=== PATIENT | female | born 1960 | race Caucasian/White ===

== ENCOUNTER 2017-05-17 08:08 | Emergency (ER) | payer OTHER ==
[2017-05-17 08:08] VITALS: BMI 20.2
[2017-05-17 08:13] VITALS: O2SAT 100
[2017-05-17] MEDS ORDERED: Iohexol 240 (50 ml) PO STA (08:45)
--- NOTE | 2017-05-17 08:47 | C.PDOC ---
History Of Present Illness Patient is a 56 y/o F with hx of colostomy 8 years ago due to colon cancer, presenting with "lump" at 3 oclock at edge of colostomy. She denies fever, chest pain, shortness of breath, abdominal pain, nausea/vomiting, diarrhea/ constipation, dysuria. Reports normal colostomy output. Time Seen by Provider: 05/17/17 08:31 Chief Complaint (Nursing): Abdominal Pain Past Medical History Vital Signs: Last Vital Signs Temp 97.4 F L 05/17/17 11:27 Pulse 78 05/17/17 11:27 Resp 20 05/17/17 11:27 BP 168/75 H 05/17/17 11:27 Pulse Ox 100 05/17/17 13:37 - Medical History PMH: Malignancy (colon ca) - [facility] Procedures APPLICATION OF SPLINT (05/07/14) Family History: States: Unknown Family Hx - Social History Hx Tobacco Use: Yes (light smoker) Hx Alcohol Use: Yes Hx Substance Use: No - Immunization History Hx Tetanus Toxoid Vaccination: No Hx Influenza Vaccination: No Hx Pneumococcal Vaccination: No Review Of Systems Except As Marked, All Systems Reviewed And Found Negative. Constitutional: Negative for: Fever, Chills Cardiovascular: Negative for: Chest Pain, Palpitations, Paroxysmal Noc. Dyspnea , Edema Respiratory: Negative for: Cough, Shortness of Breath, SOB with Excertion, Wheezing Gastrointestinal: Positive for: Other (lump near colostomy site). Negative for : Nausea, Vomiting, Abdominal Pain, Diarrhea, Constipation Genitourinary: Negative for: Dysuria Neurological: Negative for: Weakness, Numbness Physical Exam - Physical Exam Appears: Well, Non-toxic, No Acute Distress Skin: Normal Color, Warm, Dry Head: Atraumatic, Normacephalic Eye(s): bilateral: Normal Inspection, PERRL, EOMI Neck: Supple Chest: Symmetrical Cardiovascular: Rhythm Regular Respiratory: Normal Breath Sounds Gastrointestinal/Abdominal: Soft, No Tenderness, Other (colostomy to L abdomen, pea sized small non-tender non-mobile lump at 3 oclock, pink stoma) Back: Normal Inspection, No CVA Tenderness Extremity: Normal ROM Neurological/Psych: Oriented x3 Gait: Steady ED Course And Treatment - Laboratory Results Result Diagrams: 05/17/17 08:54 05/17/17 08:54 O2 Sat by Pulse Oximetry: 100 Medical Decision Making Medical Decision Making: Will get CT abd/pelvis with po and IV contrast to evaluate further. CT FINDINGS: LOWER THORAX: Unremarkable. LIVER: Unremarkable. No gross lesion or ductal dilatation. GALLBLADDER AND BILE DUCTS: Unremarkable. PANCREAS: Unremarkable. No gross lesion or ductal dilatation. SPLEEN: Unremarkable. ADRENALS: Unremarkable. No mass. KIDNEYS AND URETERS: Right hydronephrosis and proximal hydroureter. Point of transition in the right ureter is noted in the mid pelvis without evidence of ureteral calculus or adjacent neoplastic or inflammatory process. Significance uncertain. No left hydronephrosis. No renal mass or calculus. VASCULATURE: Unremarkable. No aortic aneurysm. BOWEL: Status post abdominoperineal resection. Left parasagittal anterior colostomy. Small parastomal hernia of small bowel unchanged in appearance from prior examination. Small infra umbilical hernia containing nonobstructed small bowel for more inferiorly, in the midline. No bowel obstruction. APPENDIX: Normal appendix. PERITONEUM: Presacral soft tissue thickening unchanged from previous common nonspecific. No ascites or pneumoperitoneum. LYMPH NODES: Unremarkable. No enlarged lymph nodes. BLADDER: Unremarkable. REPRODUCTIVE: Unremarkable uterus BONES: No acute fracture. OTHER FINDINGS: None. IMPRESSION: Small parastomal hernia containing small bowel unchanged from previous. No evidence of abscess or other inflammatory process at the site of the colostomy. Inferior midline ventral hernia containing nonobstructed small bowel. Right hydroureteronephrosis with transition in the ureteral caliber at the level of the mid pelvis. Uncertain etiology. Recommend further evaluation by Urology. Status post abdominoperineal resection. Labs are grossly normal. Patient made aware of CT results. She has no urinary complaints, no fever, and normal creatinine and wbc. She reports that she will follow-up with urologist for further evaluation. She will follow-up with her surgeon and oncologist for further evaluation. no urinary cmplaints Disposition - Disposition Referrals: Byron Graves Jr., MD [Staff Provider] - Disposition: HOME/ ROUTINE Disposition Time: 13:35 Condition: GOOD Additional Instructions: Follow-up with urology for hydroureteronephrosis. Return to ED if condition worsens. Follow-up with your surgeon and cancer doctor for swelling near colostomy site. Forms: [employer] (Greek) - Clinical Impression Clinical Impression: Hernia
[2017-05-17] MEDS ORDERED: Iohexol 240 (50 ml) ONE (08:53)
[2017-05-17 09:00] LABS: BASO # 0.1 K/uL (0.0-0.2); BASO % 1.2 % (0.0-2.0); EOS # 0.2 K/uL (0.0-0.7); HEMATOCRIT 40.2 % (34.0-47.0); LYMPH # 1.7 K/uL (1.0-4.3); MEAN CELL VOLUME 93.4 fL (81.0-99.0); MEAN CORPUSCULAR HEMOGLOBIN 31.9 pg (27.0-31.0); MEAN CORPUSCULAR HGB CONC 34.2 g/dL (33.0-37.0); MEAN PLATELET VOLUME 7.4 fL (7.2-11.7); MONO # 0.4 K/uL (0.0-0.8); MONO % 7.3 % (0.0-10.0); RED CELL DISTRIBUTION WIDTH 13.1 % (11.5-14.5); WHITE BLOOD COUNT 5.4 K/uL (4.8-10.8)
[2017-05-17 10:43] LABS: ALB/GLOB RATIO 1.3 (1.0-2.1); ALKALINE PHOSPHATASE 93 U/L (38-126); ALT/SGPT 33 U/L (9-52); AST/SGOT 25 U/L (14-36); BILIRUBIN,TOTAL 0.9 mg/dL (0.2-1.3); BLOOD UREA NITROGEN 16 mg/dL (7-17); CALCIUM 8.8 mg/dl (8.6-10.4); CARBON DIOXIDE 21 mmol/L (22-30); CHLORIDE 105 mmol/L (98-107); GFR AFRICAN-AMERICAN > 60; GLUCOSE,RANDOM 102 mg/dL (65-105); POTASSIUM 3.6 mmol/L (3.6-5.2); SODIUM 137 mmol/L (132-148); TOTAL PROTEIN 7.6 g/dL (6.3-8.3)
[2017-05-17] MEDS ORDERED: Iodixanol 320 MG/ML 100 ML BOTTLE IV ONE (10:57)
[2017-05-17] MEDS ORDERED: Morphine 4 MG/ML VIAL ONE (11:27)
[2017-05-17 11:28] VITALS: BP 168/75; PULSE 78; RESP 20; TEMP 97.4
--- NOTE | 2017-05-17 12:44 | CT ---
PROCEDURE: CT Abdomen and Pelvis with contrast HISTORY: swelling near colostomy site COMPARISON: None. TECHNIQUE: Contrast dose: 100 mL Visipaque 320 Radiation dose: Total exam DLP = 264.88 mGy-cm. This CT exam was performed using one or more of the following dose reduction techniques: Automated exposure control, adjustment of the mA and/or kV according to patient size, and/or use of iterative reconstruction technique. FINDINGS: LOWER THORAX: Unremarkable. LIVER: Unremarkable. No gross lesion or ductal dilatation. GALLBLADDER AND BILE DUCTS: Unremarkable. PANCREAS: Unremarkable. No gross lesion or ductal dilatation. SPLEEN: Unremarkable. ADRENALS: Unremarkable. No mass. KIDNEYS AND URETERS: Right hydronephrosis and proximal hydroureter. Point of transition in the right ureter is noted in the mid pelvis without evidence of ureteral calculus or adjacent neoplastic or inflammatory process. Significance uncertain. No left hydronephrosis. No renal mass or calculus. VASCULATURE: Unremarkable. No aortic aneurysm. BOWEL: Status post abdominoperineal resection. Left parasagittal anterior colostomy. Small parastomal hernia of small bowel unchanged in appearance from prior examination. Small infra umbilical hernia containing nonobstructed small bowel for more inferiorly, in the midline. No bowel obstruction. . . APPENDIX: Normal appendix. PERITONEUM: Presacral soft tissue thickening unchanged from previous common nonspecific. No ascites or pneumoperitoneum. LYMPH NODES: Unremarkable. No enlarged lymph nodes. BLADDER: Unremarkable. REPRODUCTIVE: Unremarkable uterus BONES: No acute fracture. OTHER FINDINGS: None. IMPRESSION: Small parastomal hernia containing small bowel unchanged from previous. No evidence of abscess or other inflammatory process at the site of the colostomy. Inferior midline ventral hernia containing nonobstructed small bowel. Right hydroureteronephrosis with transition in the ureteral caliber at the level of the mid pelvis. Uncertain etiology. Recommend further evaluation by Urology. Status post abdominoperineal resection.
== END 2017-05-17 14:10 | disposition home or self-care (01) ==
LOC: C.ER 08:08
DX: K46.9 Unspecified abdominal hernia without obstruction or gangrene (principal)
CPT/HCPCS: 74177; 80053; 85025; 96374; 96375; 99285; J1885; J2270; Q9966; Q9967

== ENCOUNTER 2017-09-07 22:03 | Inpatient (IN) | payer OTHER ==
[2017-09-07 22:04] VITALS: BMI 20.2
--- NOTE | 2017-09-07 22:14 | C.PDOC ---
History Of Present Illness 56 year old female presents to the ED c/o hematuria and clots. Patient is also requesting to have a catheter placed. Patient denies fever, chills, nausea. vomit, abdominal pain, back pain, vaginal discharge. Time Seen by Provider: 09/07/17 22:13 Chief Complaint (Nursing): Female Genitourinary History Per: Patient History/Exam Limitations: no limitations Onset/Duration Of Symptoms: Days Current Symptoms Are (Timing): Still Present Severity: Severe Pain Scale Rating Of: 7 Quality Of Discomfort: Sharp, Burning, Pressure Associated Symptoms: Urinary Symptoms. denies: Fever, Chills, Nausea Alleviating Factors: None Recent travel outside of the [place]: No Additional History Per: Patient Abnormal Vaginal Bleeding: No Past Medical History Reviewed: Historical Data, Nursing Documentation, Vital Signs Vital Signs: Last Vital Signs Temp 97.7 F 09/07/17 23:45 Pulse 76 09/07/17 23:45 Resp 20 09/07/17 23:45 BP 138/70 09/07/17 23:45 Pulse Ox 97 09/08/17 00:24 - Medical History PMH: Malignancy (colon ca) Surgical History: No Surg Hx - [facility] Procedures APPLICATION OF SPLINT (05/07/14) Family History: States: Unknown Family Hx - Social History Hx Tobacco Use: Yes (light smoker) Hx Alcohol Use: Yes Hx Substance Use: Yes (for CA pain) - Immunization History Hx Tetanus Toxoid Vaccination: No Hx Influenza Vaccination: No Hx Pneumococcal Vaccination: No Review Of Systems Constitutional: Negative for: Fever, Chills Cardiovascular: Negative for: Chest Pain Gastrointestinal: Negative for: Nausea, Vomiting, Abdominal Pain Genitourinary: Positive for: Hematuria. Negative for: Dysuria Musculoskeletal: Negative for: Back Pain Skin: Negative for: Rash Neurological: Negative for: Weakness, Numbness Psych: Positive for: Anxiety Physical Exam - Physical Exam Appears: Non-toxic, No Acute Distress Skin: Warm, Dry Head: Normacephalic Eye(s): bilateral: Normal Inspection Nose: No Discharge, No Deformity Oral Mucosa: Moist Neck: Supple Chest: Symmetrical Cardiovascular: Rhythm Regular, No Murmur Respiratory: No Rales, No Rhonchi, No Wheezing Gastrointestinal/Abdominal: Soft, No Tenderness, No Guarding, No Rebound, Other (colostomy on the left) Extremity: Normal ROM, No Tenderness, No Swelling Extremity: Bilateral: Atraumatic Pulses: Left Dorsalis Pedis: Normal, Right Dorsalis Pedis: Normal Neurological/Psych: Oriented x3 Gait: Steady ED Course And Treatment - Laboratory Results Result Diagrams: 09/07/17 22:38 09/07/17 22:38 O2 Sat by Pulse Oximetry: 97 (On RA) Pulse Ox Interpretation: Normal - CT Scan/US CT abd/pelvis Other Rad Studies (CT/US): Read By Radiologist, Radiology Report Reviewed CT/US Interpretation: IMPRESSION: Decompressed thickwalled bladder with adjacent inflammatory changes and small amount of. hemorrhage. Findings could be related to hemorrhagic cystitis. Clinical correlation recommended. Bilateral hydroureteronephrosis. No definite distal ureteral stone.Indeterminate appendix. Mildly thickened proximal appendix measures 9 mm. No adjacent. inflammatory stranding to suggest acute appendicitis. Clinical correlation recommended. Short. interval followup to be obtained if clinically warranted. Small nonobstructing ventral hernias. Progress Note: Plan: - CT abd/pelvis. - Labs. - Pepcid 20 mg IVP. - IV fluids. - Zofran 4 mg IVP. - UA. Placed a uzbek landrum with no difficulty approximate 8 ccs of bloody urine were collected in small pots. Nurse Dirk present during the procedure as witness. Patient tolerated the procedure well. Disposition Discussed With : Tung Lloyd Comment: accepted the pt on his service and took over the care at 12:29AM Doctor Will See Patient In The: Hospital Counseled Patient/Family Regarding: Studies Performed, Diagnosis - Disposition Disposition: HOSPITALIZED Disposition Time: 22:14 Condition: FAIR Forms: [employer] (Chinese) - POA Present On Arrival: None - Clinical Impression Clinical Impression: Abdominal pain, Hematuria, Hydroureteronephrosis - Scribe Statement The provider has reviewed the documentation as recorded by the Scribe Rei [place] All medical record entries made by the Scribe were at my direction and personally dictated by me. I have reviewed the chart and agree that the record accurately reflects my personal performance of the history, physical exam, medical decision making, and the department course for this patient. I have also personally directed, reviewed, and agree with the discharge instructions and disposition. Decision To Admit - Pt Status Changed To: Hospital Disposition Of: Inpatient - Admit Certification Admit to Inpatient:: After my assessment, the patient will require hospitalization for at least two midnights. This is because of the severity of symptoms shown, intensity of services needed, and/or the medical risk in this patient being treated as an outpatient. - InPatient: Physician Admission Certification: I certify that this patient requires 2 or more midnights of care for the following reason:: After my assessment, the patient will require hospitalization for at least two midnights. This is because of the severity of symptoms shown, intensity of services needed, and/or the medical risk in this patient being treated as an outpatient. - . Bed Request Type: Regular Admitting Physician: Tung Lloyd Patient Diagnosis: Abdominal pain, Hematuria, Hydroureteronephrosis
[2017-09-07] MEDS ORDERED: Sodium Chloride 0.9% 1,000 ML IV ONE (22:27)
[2017-09-07 22:41] LABS: BASO # 0.1 K/uL (0.0-0.2); BASO % 1.3 % (0.0-2.0); EOS # 0.2 K/uL (0.0-0.7); EOS % 3.9 % (0.0-4.0); HEMOGLOBIN 12.6 g/dL (11.0-16.0); LYMPH # 2.7 K/uL (1.0-4.3); LYMPH % 43.8 % (20.0-40.0); MEAN CELL VOLUME 93.2 fL (81.0-99.0); MEAN CORPUSCULAR HEMOGLOBIN 32.6 pg (27.0-31.0); MEAN PLATELET VOLUME 7.2 fL (7.2-11.7); MONO # 0.4 K/uL (0.0-0.8); MONO % 7.2 % (0.0-10.0); NEUT # 2.7 K/uL (1.8-7.0); NEUT % 43.8 % (50.0-75.0); RBC 3.87 Mil/uL (3.80-5.20); RED CELL DISTRIBUTION WIDTH 13.7 % (11.5-14.5); WHITE BLOOD COUNT 6.2 K/uL (4.8-10.8)
[2017-09-07] MEDS ORDERED: Morphine 4 MG/ML VIAL ONE (22:41)
[2017-09-07] MEDS ORDERED: Sodium Chloride 0.9% 1,000 ML ONE (22:41)
[2017-09-07 22:47] LABS: URINE BACTERIA FEW (<OCC); URINE BILIRUBIN NEGATIVE (NEGATIVE); URINE BLOOD 3+ (NEGATIVE); URINE CLARITY Turbid (Clear); URINE COLOR Red (YELLOW); URINE GLUCOSE (UA) 1+ mg/dL (Normal); URINE LEUKOCYTE ESTERASE NEG Leu/uL (Negative); URINE PROTEIN 2+ mg/dL (NEGATIVE); URINE UROBILINOGEN NORMAL mg/dL (0.2-1.0)
[2017-09-07 22:50] LABS: PROTHROMBIN TIME 10.6 SECONDS (9.7-12.2)
[2017-09-07 22:53] LABS: ALB/GLOB RATIO 1.1 (1.0-2.1); ALBUMIN 4.1 g/dL (3.5-5.0); ALT/SGPT 18 U/L (9-52); AST/SGOT 21 U/L (14-36); BLOOD UREA NITROGEN 26 mg/dL (7-17); CALCIUM 9.1 mg/dl (8.6-10.4); GFR AFRICAN-AMERICAN > 60; GFR NON-AFRICAN AMERICAN > 60
[2017-09-07] MEDS ORDERED: Iohexol 350mg/ml 100 ML ONE (22:59)
[2017-09-07] MEDS ORDERED: HYDROmorphone 1 mg/ml ISec IVP STA (23:57)
[2017-09-08] MEDS ORDERED: HYDROmorphone 1 mg/ml ISec ONE (00:03)
--- NOTE | 2017-09-08 00:15 | CT ---
EXAM: CT Abdomen and Pelvis With Intravenous Contrast CLINICAL HISTORY: 56 years old, female; Pain and signs and symptoms; Other: Hematuria; Abdominal pain; Generalized; Additional info: Abd pain , hematuria TECHNIQUE: Axial computed tomography images of the abdomen and pelvis with intravenous contrast. All CT scans at this facility use one or more dose reduction techniques, viz.: automated exposure control; ma/kV adjustment per patient size (including targeted exams where dose is matched to indication; i.e. head); or iterative reconstruction technique. Coronal and sagittal reformatted images were created and reviewed. CONTRAST: 100 mL of [id number] administered intravenously. COMPARISON: No relevant prior studies available. FINDINGS: Lower thorax: There is minimal bibasilar atelectasis. ABDOMEN: Liver: Unremarkable. No mass. Gallbladder and bile ducts: Unremarkable. No calcified stones. No ductal dilation. Pancreas: Unremarkable. No mass. No ductal dilation. Spleen: Unremarkable. No splenomegaly. Adrenals: Unremarkable. No mass. Kidneys and ureters: Mild bilateral hydronephrosis and hydroureter. No distal ureteral stone. No mass. Stomach and bowel: Lower quadrant colostomy and partial colectomy. There are multiple small ventral hernia containing short segment of small bowel without obstruction. No mucosal thickening. Appendix: The proximal appendix is thickened measuring 9 mm with adjacent inflammatory stranding to suggest acute appendicitis. PELVIS: Bladder: The bladder is thick walled with adjacent inflammatory stranding. There is a focus of high density fluid in the right bladder base measuring 11 x 14 mm consistent with blood. The bladder is decompressed by a Leone catheter. There is a small amount of intraluminal air consistent with instrumentation. Reproductive: The uterus is not visualized, and may be surgically absent. ABDOMEN and PELVIS: Intraperitoneal space: No free air. No significant fluid collection. Bones/joints: No acute fracture. No dislocation. Vasculature: The vasculature demonstrates diffuse moderate atherosclerotic calcification. No abdominal aortic aneurysm. Lymph nodes: Unremarkable. No enlarged lymph nodes. IMPRESSION: Decompressed thickwalled bladder with adjacent inflammatory changes and small amount of hemorrhage. Findings could be related to hemorrhagic cystitis. Clinical correlation recommended. Bilateral hydroureteronephrosis. No definite distal ureteral stone. Indeterminate appendix. Mildly thickened proximal appendix measures 9 mm. No adjacent inflammatory stranding to suggest acute appendicitis. Clinical correlation recommended. Short interval followup to be obtained if clinically warranted. Small nonobstructing ventral hernias.
[2017-09-08] MEDS: Sodium Chloride 0.9% 1,000 ML IV SCH ×3 (01:02→20:30)
[2017-09-08 06:59] LABS: HEMOGLOBIN 11.4 g/dL (11.0-16.0); MEAN CELL VOLUME 95.3 fL (81.0-99.0); MEAN CORPUSCULAR HEMOGLOBIN 32.8 pg (27.0-31.0); MEAN CORPUSCULAR HGB CONC 34.4 g/dL (33.0-37.0); MEAN PLATELET VOLUME 7.4 fL (7.2-11.7); RBC 3.48 Mil/uL (3.80-5.20); RED CELL DISTRIBUTION WIDTH 13.7 % (11.5-14.5); WHITE BLOOD COUNT 5.7 K/uL (4.8-10.8)
[2017-09-08 07:30] LABS: BLOOD UREA NITROGEN 19 mg/dL (7-17); CALCIUM 8.1 mg/dl (8.6-10.4); GFR AFRICAN-AMERICAN > 60; GFR NON-AFRICAN AMERICAN > 60
[2017-09-08] MEDS ORDERED: HYDROmorphone 0.5 mg/0.5 ml ISec IVP PRN (09:11)
[2017-09-08] MEDS ORDERED: Influenza Vaccine 60 mcg/0.5 mL SYR (4YR UP) IM ONE (10:00)
[2017-09-08] MEDS ORDERED: Potassium Chloride 20 mEq ER Tab PO ONE (10:00)
[2017-09-08] MEDS ORDERED: Enoxaparin 40 mg Syringe SC SCH (10:00)
[2017-09-08] MEDS ORDERED: Pneumococcal 23-Valent Vaccine IM ONE (10:00)
[2017-09-08] MEDS: HYDROmorphone 1 mg/ml ISec IVP PRN ×2 (14:23→23:41)
[2017-09-08] MEDS: Ciprofloxacin 200mg/100ml D5W 100 ML IVPB SCH (17:47)
--- NOTE | 2017-09-08 23:18 | CP.PCM.HP ---
History of Present Illness - History of Present Illness History of Present Illness: CC: Hematuria HPI: 56 year old female with h/o colon cancer and colostomy 9 years ago presents to the ED c/o gross hematuria and clots. Patient is also requesting to have a catheter placed. Patient denies fever, chills, nausea. vomit, abdominal pain, back pain, vaginal discharge.she had landrum placed in ER, she is in intense distress and has abdominal discomfort Present on Admission - Present on Admission Any Indicators Present on Admission: Yes Review of Systems - Review of Systems Systems not reviewed;Unavailable: Acuity of Condition - Constitutional Constitutional: Fatigue, Malaise - EENT Eyes: absent: As Per HPI, Blind Spots, Blurred Vision, Change in Vision, Decreased Night Vision, Diplopia, Discharge, Dry Eye, Exophthalmos, Floaters, Irritation, Itchy Eyes, Loss of Peripheral Vision, Pain, Photophobia, Requires Corrective Lenses, Sees Flashes, Spots in Vision, Tunnel Vision, Other Visual Disturbances, Loss of Vision, Other Ears: absent: As Per HPI, Decreased Hearing, Ear Discharge, Ear Pain, Tinnitus, Abnormal Hearing, Disequilibrium, Dizziness, Other Nose/Mouth/Throat: absent: As Per HPI, Epistaxis, Nasal Congestion, Nasal Discharge, Nasal Obstruction, Nasal Trauma, Nose Pain, Post Nasal Drip, Sinus Pain, Sinus Pressure, Bleeding Gums, Change in Voice, Dental Pain, Dry Mouth, Dysphagia, Halitosis, Hoarsness, Lip Swelling, Mouth Lesions, Mouth Pain, Odynophagia, Sore Throat, Throat Swelling, Tongue Swelling, Facial Pain, Neck Pain, Neck Mass, Other - Cardiovascular Cardiovascular: absent: As Per HPI, Acrocyanosis, Chest Pain, Chest Pain at Rest , Chest Pain with Activity, Claudication, Diaphoresis, Dyspnea, Dyspnea on Exertion, Edema, Irregular Heart Rhythm, Pain Radiating to Arm/Neck/Jaw, Leg Edema, Leg Ulcers, Lightheadedness, Orthopnea, Palpitations, Paroxysmal Nocturnal Dyspnea, Pedal Edema, Radiating Pain, Rapid Heart Rate, Slow Heart Rate, Syncope, Other - Respiratory Respiratory: absent: As Per HPI, Cough, Dyspnea, Hemoptysis, Dyspnea on Exertion , Wheezing, Snoring, Stridor, Pain on Inspiration, Chest Congestion, Excessive Mucous Production, Change in Mucous Color, Pain with Coughing, Other - Gastrointestinal Gastrointestinal: Abdominal Pain, Nausea, Vomiting - Genitourinary Genitourinary: Difficulty Urinating, Dysuria, Hematuria Past Patient History - Past Medical History & Family History Past Medical History?: Yes - Past Social History Smoking Status: Light Smoker < 10 Cigarettes Daily - CARDIAC Hx Cardiac Disorders: No - PULMONARY Hx Respiratory Disorders: No - NEUROLOGICAL Hx Neurological Disorder: No - HEENT Hx HEENT Problems: No - RENAL Other/Comment: bilateral hydronephrosis - ENDOCRINE/METABOLIC Hx Endocrine Disorders: No - HEMATOLOGICAL/ONCOLOGICAL Hx Blood Disorders: Yes Hx Cancer: Yes (colon surgery) Hx Chemotherapy: Yes - INTEGUMENTARY Hx Dermatological Problems: No - MUSCULOSKELETAL/RHEUMATOLOGICAL Hx Falls: No - GASTROINTESTINAL Hx Gastrointestinal Disorders: Yes Hx Colostomy: Yes Other/Comment: CANCER COLON - GENITOURINARY/GYNECOLOGICAL Hx Genitourinary Disorders: Yes Hx Hematuria: Yes - PSYCHIATRIC Hx Substance Use: Yes (marijuana for pain control) - SURGICAL HISTORY Hx Surgeries: Yes Other/Comment: Left COLOSTOMY - 2009. colon surgery - ANESTHESIA Hx Anesthesia: Yes Hx Anesthesia Reactions: No Hx Malignant Hyperthermia: No Has any member of the family had a problem w/ anesthesia?: No Meds Allergies/Adverse Reactions: Allergies Allergy/AdvReac Type Severity Reaction Status Date / Time sulfamethoxazole Allergy Mild RASH Verified 09/07/17 22:13 [From Bactrim] trimethoprim [From Bactrim] Allergy Mild RASH Verified 09/07/17 22:13 acetaminophen Allergy RASH Verified 09/07/17 22:13 [From Darvocet-N] propoxyphene Allergy RASH Verified 09/07/17 22:13 [From Darvocet-N] Physical Exam - Constitutional Appears: In Acute Distress Additional comments: n pain - Head Exam Head Exam: ATRAUMATIC, NORMAL INSPECTION, NORMOCEPHALIC - Eye Exam Eye Exam: EOMI, Normal appearance, PERRL Pupil Exam: NORMAL ACCOMODATION, PERRL - Respiratory Exam Respiratory Exam: Clear to Auscultation Bilateral, NORMAL BREATHING PATTERN - Cardiovascular Exam Cardiovascular Exam: REGULAR RHYTHM - GI/Abdominal Exam GI & Abdominal Exam: Hyperactive Bowel Sounds Additional comments: colostomy in place - Back Exam Additional comments: b/l flank tenderness - Psychiatric Exam Psychiatric exam: Anxious - Skin Skin Exam: Normal Color, Warm Results - Vital Signs Recent Vital Signs: Last Vital Signs Temp 97.9 F 09/08/17 16:38 Pulse 62 09/08/17 16:38 Resp 18 09/08/17 16:38 BP 156/76 H 09/08/17 16:38 Pulse Ox 96 09/08/17 16:38 - Labs Result Diagrams: 09/08/17 06:43 09/08/17 06:43 Labs: Laboratory Results - last 24 hr 09/08/17 09/08/17 06:43 06:43 WBC 5.7 RBC 3.48 L Hgb 11.4 Hct 33.2 L MCV 95.3 D MCH 32.8 H MCHC 34.4 RDW 13.7 Plt Count 232 MPV 7.4 Sodium 143 Potassium 3.5 L Chloride 110 H Carbon Dioxide 23 Anion Gap 14 BUN 19 H Creatinine 0.7 Est GFR ( Amer) > 60 Est GFR (Non-Af Amer) > 60 Random Glucose 100 Calcium 8.1 L Assessment & Plan (1) Abdominal pain Status: Acute (2) Hematuria Assessment and Plan: antibiotics Id consult urology consult Status: Acute (3) Bladder tumor Status: Acute (4) Urinary retention Status: Acute
[2017-09-09 01:13] VITALS: RESP 20
--- NOTE | 2017-09-09 03:04 | CON ---
DATE: HISTORY OF PRESENT ILLNESS: The patient is a 56-year-old white female who was admitted to the hospital with hematuria and abdominal pain. The patient was and has difficulty emptying the bladder. After inserting the Leone, she improved and the urine started getting clear. No evidence of any clots. The patient had CAT scan which revealed bilateral hydronephrosis down to the urethrovesical junction with question of hemorrhagic cystitis. The patient has previously the same attack, and she was treated with antibiotics and same with the catheter. The patient had history of colon cancer for which she has treatment, that is 10 years ago, and she has colostomy, and after the surgery, the patient was given pelvic radiation. PHYSICAL EXAMINATION: ABDOMEN: Soft. No flank tenderness. No kidney palpable. Lower abdominal discomfort. Leone catheter functioning well. IMPRESSION: Hematuria due to hemorrhagic cystitis versus radiation cystitis, rule out bladder tumor. PLAN: Urine cytology. I would do cystoscopy and possible bladder biopsy and bilateral retrograde. Yany Ferris MD
[2017-09-09] MEDS: Ciprofloxacin 200mg/100ml D5W 100 ML IVPB SCH ×2 (05:23→17:31)
[2017-09-09] MEDS: Sodium Chloride 0.9% 1,000 ML IV SCH ×2 (06:21→16:19)
[2017-09-09 11:20] LABS: BASO % 0.7 % (0.0-2.0); EOS # 0.2 K/uL (0.0-0.7); EOS % 2.3 % (0.0-4.0); HEMOGLOBIN 12.4 g/dL (11.0-16.0); LYMPH # 1.7 K/uL (1.0-4.3); LYMPH % 22.2 % (20.0-40.0); MEAN CELL VOLUME 93.9 fL (81.0-99.0); MEAN CORPUSCULAR HEMOGLOBIN 32.3 pg (27.0-31.0); MEAN CORPUSCULAR HGB CONC 34.4 g/dL (33.0-37.0); MEAN PLATELET VOLUME 7.5 fL (7.2-11.7); MONO # 0.5 K/uL (0.0-0.8); MONO % 6.2 % (0.0-10.0); NEUT # 5.2 K/uL (1.8-7.0); NEUT % 68.6 % (50.0-75.0); NRBC % 0.1 % (0.0-2.0); RBC 3.84 Mil/uL (3.80-5.20); RED CELL DISTRIBUTION WIDTH 13.5 % (11.5-14.5); WHITE BLOOD COUNT 7.5 K/uL (4.8-10.8)
[2017-09-09 11:42] LABS: BLOOD UREA NITROGEN 10 mg/dL (7-17); CALCIUM 8.6 mg/dl (8.6-10.4); GFR AFRICAN-AMERICAN > 60; GFR NON-AFRICAN AMERICAN > 60
--- NOTE | 2017-09-09 15:23 | RAD ---
PROCEDURE: CHEST RADIOGRAPH, 1 VIEW HISTORY: preop for surgery 09/10/2017 COMPARISON: 12/29/2010 FINDINGS: LUNGS: Clear. PLEURA: No pneumothorax or pleural fluid seen. CARDIOVASCULAR: No radiographic findings to suggest acute or significant cardiovascular disease. OSSEOUS STRUCTURES: No significant abnormalities. VISUALIZED UPPER ABDOMEN: Normal. OTHER FINDINGS: None. IMPRESSION: No significant interval change compared to the prior examination(s).
--- NOTE | 2017-09-09 23:31 | CP.PCM.PN ---
Subjective - Date & Time of Evaluation Date of Evaluation: 09/09/17 Time of Evaluation: 18:35 - Subjective Subjective: PATIENT SEEN AND EVALUATED TODAY,less hematuria, no fever, feeling better she is for cystoscopy tommorow, she has hydronephrosis & cystitis on CAT scan so we have to rule out nephrolithiaisis Objective - Vital Signs/Intake and Output Vital Signs (last 24 hours): Temp Pulse Resp BP Pulse Ox 98 F 83 20 152/73 H 98 09/09/17 16:00 09/09/17 16:00 09/09/17 16:00 09/09/17 16:00 09/09/17 16:00 Intake and Output: 09/09/17 09/10/17 18:59 06:59 Intake Total 2350 1370 Output Total 3600 1200 Balance -1250 170 - Medications Medications: Current Medications Acetaminophen (Tylenol 325mg Tab) 650 mg PO Q6 PRN PRN Reason: Pain, moderate (4-7) Alprazolam (Xanax) 0.25 mg PO TID PRN PRN Reason: Anxiety Stop: 09/16/17 11:16 Last Admin: 09/09/17 22:43 Dose: 0.25 mg Hydromorphone HCl (Dilaudid) 1 mg IVP Q4H PRN PRN Reason: Pain, severe (8-10) Last Admin: 09/08/17 23:41 Dose: 1 mg Sodium Chloride (Sodium Chloride 0.9%) 1,000 mls @ 100 mls/hr IV .Q10H [facility] Last Admin: 09/09/17 16:19 Dose: 100 mls/hr Ciprofloxacin (Cipro 200mg/100ml D5w) 100 mls @ 67 mls/hr IVPB Q12H DONALDO PRN Reason: Protocol Last Admin: 09/09/17 17:31 Dose: 67 mls/hr Ondansetron HCl (Zofran Inj) 4 mg IVP Q4 PRN PRN Reason: Nausea/Vomiting Last Admin: 09/08/17 19:55 Dose: 4 mg - Labs Labs: 09/09/17 11:11 09/09/17 11:11 PT 10.6 SECONDS (9.7-12.2) 09/07/17 22:38 INR 1.0 09/07/17 22:38 APTT 28 SECONDS (21-34) 09/07/17 22:38 - Constitutional Appears: No Acute Distress - Eye Exam Eye Exam: EOMI, Normal appearance, PERRL Pupil Exam: NORMAL ACCOMODATION, PERRL - Respiratory Exam Respiratory Exam: Clear to Ausculation Bilateral, NORMAL BREATHING PATTERN - Cardiovascular Exam Cardiovascular Exam: REGULAR RHYTHM, +S1, +S2. absent: Murmur - GI/Abdominal Exam GI & Abdominal Exam: Soft, Normal Bowel Sounds. absent: Tenderness Assessment and Plan (1) Abdominal pain Status: Acute (2) Hematuria Status: Acute (3) Bladder tumor Status: Acute (4) Urinary retention Status: Acute (5) Colon cancer Assessment & Plan: s/p colostomy Status: Acute
[2017-09-10] MEDS: Sodium Chloride 0.9% 1,000 ML IV SCH (03:00)
[2017-09-10] MEDS: Ciprofloxacin 200mg/100ml D5W 100 ML IVPB SCH (06:01)
[2017-09-10 07:38] VITALS: BP 144/77; PULSE 74; TEMP 97.8; O2SAT 997
[2017-09-10] MEDS ORDERED: Influenza Vaccine 60 mcg/0.5 mL SYR (4YR UP) IM ONE (10:00)
--- NOTE | 2017-09-10 22:30 | CP.PCM.DIS ---
Provider - Provider Date of Admission: 09/08/17 00:27 Attending physician: Tung Lloyd MD Time Spent in preparation of Discharge (in minutes): 45 Diagnosis - Discharge Diagnosis (1) Abdominal pain Status: Acute (2) Hematuria Status: Acute (3) Bladder tumor Status: Acute (4) Urinary retention Status: Acute Hospital Course - Lab Results Lab Results: Micro Results 09/08/17 00:54 Urine,Catheterized Urine Culture - Final No Growth (<1,000 CFU/ML) Most Recent Lab Values WBC 7.5 K/uL (4.8-10.8) 09/09/17 11:11 RBC 3.84 Mil/uL (3.80-5.20) 09/09/17 11:11 Hgb 12.4 g/dL (11.0-16.0) 09/09/17 11:11 Hct 36.1 % (34.0-47.0) 09/09/17 11:11 MCV 93.9 fL (81.0-99.0) 09/09/17 11:11 MCH 32.3 pg (27.0-31.0) H 09/09/17 11:11 MCHC 34.4 g/dL (33.0-37.0) 09/09/17 11:11 RDW 13.5 % (11.5-14.5) 09/09/17 11:11 Plt Count 257 K/uL (130-400) 09/09/17 11:11 MPV 7.5 fL (7.2-11.7) 09/09/17 11:11 Neut % (Auto) 68.6 % (50.0-75.0) 09/09/17 11:11 Lymph % (Auto) 22.2 % (20.0-40.0) 09/09/17 11:11 [place] % (Auto) 6.2 % (0.0-10.0) 09/09/17 11:11 Eos % (Auto) 2.3 % (0.0-4.0) 09/09/17 11:11 Baso % (Auto) 0.7 % (0.0-2.0) 09/09/17 11:11 Neut # (Auto) 5.2 K/uL (1.8-7.0) 09/09/17 11:11 Lymph # (Auto) 1.7 K/uL (1.0-4.3) 09/09/17 11:11 [place] # (Auto) 0.5 K/uL (0.0-0.8) 09/09/17 11:11 Eos # (Auto) 0.2 K/uL (0.0-0.7) 09/09/17 11:11 Baso # (Auto) 0.0 K/uL (0.0-0.2) 09/09/17 11:11 PT 10.6 SECONDS (9.7-12.2) 09/07/17 22:38 INR 1.0 09/07/17 22:38 APTT 28 SECONDS (21-34) 09/07/17 22:38 Sodium 140 mmol/L (132-148) 09/09/17 11:11 Potassium 3.9 mmol/L (3.6-5.2) 09/09/17 11:11 Chloride 105 mmol/L (98-107) 09/09/17 11:11 Carbon Dioxide 23 mmol/L (22-30) 09/09/17 11:11 Anion Gap 16 (10-20) 09/09/17 11:11 BUN 10 mg/dL (7-17) 09/09/17 11:11 Creatinine 0.6 mg/dL (0.7-1.2) L 09/09/17 11:11 Est GFR ( Amer) > 60 09/09/17 11:11 Est GFR (Non-Af Amer) > 60 09/09/17 11:11 Random Glucose 98 mg/dL (65-105) 09/09/17 11:11 Calcium 8.6 mg/dl (8.6-10.4) 09/09/17 11:11 Total Bilirubin 0.4 mg/dL (0.2-1.3) 09/07/17 22:38 AST 21 U/L (14-36) 09/07/17 22:38 ALT 18 U/L (9-52) 09/07/17 22:38 Alkaline Phosphatase 90 U/L (38-126) 09/07/17 22:38 Total Protein 8.0 g/dL (6.3-8.3) 09/07/17 22:38 Albumin 4.1 g/dL (3.5-5.0) 09/07/17 22:38 Globulin 3.8 gm/dL (2.2-3.9) 09/07/17 22:38 Albumin/Globulin Ratio 1.1 (1.0-2.1) 09/07/17 22:38 Urine Color Red (YELLOW) 09/07/17 22:35 Urine Clarity Turbid (Clear) 09/07/17 22:35 Urine pH 5.0 (5.0-8.0) 09/07/17 22:35 Ur Specific [place] 1.033 (1.003-1.030) H 09/07/17 22:35 Urine Protein 2+ mg/dL (NEGATIVE) H 09/07/17 22:35 Urine Glucose (UA) 1+ mg/dL (Normal) 09/07/17 22:35 Urine Ketones Negative mg/dL (NEGATIVE) 09/07/17 22:35 Urine Blood 3+ (NEGATIVE) H 09/07/17 22:35 Urine Nitrate Negative (NEGATIVE) 09/07/17 22:35 Urine Bilirubin Negative (NEGATIVE) 09/07/17 22:35 Urine Urobilinogen Normal mg/dL (0.2-1.0) 09/07/17 22:35 Ur Leukocyte Esterase Neg [place]/uL (Negative) 09/07/17 22:35 Urine WBC (Auto) 5 /hpf (0-5) 09/07/17 22:35 Urine RBC (Auto) 47632 /hpf (0-3) H 09/07/17 22:35 Urine Bacteria Few (<OCC) H 09/07/17 22:35 Urine Yeast (Budding) Mod /hpf (NEGATIVE) H 09/07/17 22:35 Discharge Exam - Head Exam Head Exam: ATRAUMATIC, NORMAL INSPECTION, NORMOCEPHALIC Discharge Plan - Follow Up Plan Condition: GOOD Disposition: AGAINST MEDICAL ADVICE
== END 2017-09-10 10:30 | disposition left against medical advice (07) | DRG 687 ==
LOC: C.ER 22:03 → C.3T 09-08 00:27
PROVIDERS: ADMIT Internal Medicine; ATTEND Internal Medicine
DX: D49.4 Neoplasm of unspecified behavior of bladder (principal); N13.30 Unspecified hydronephrosis; N30.91 Cystitis, unspecified with hematuria; K43.9 Ventral hernia without obstruction or gangrene; Z85.038 Personal history of other malignant neoplasm of large intestine; Z93.3 Colostomy status; F12.90 Cannabis use, unspecified, uncomplicated

== ENCOUNTER 2018-08-03 21:43 | Observation (INO) | payer OTHER ==
[2018-08-03 21:43] VITALS: BMI 20.2
--- NOTE | 2018-08-03 22:46 | C.PDOC ---
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 Patient states it flares up yearly and has episodes of hematuria, occasionally when it is significant she gets abdominal discomfort and clotting with urinary output disruption. Patient presents now with sudden onset of abdominal discomfort and bloody urine tonight. Denies fever, chills, nausea, or vomiting. Time Seen by Provider: 08/03/18 22:40 Chief Complaint (Nursing): Abdominal Pain History Per: Patient History/Exam Limitations: no limitations Onset/Duration Of Symptoms: Hrs, Sudden Onset Current Symptoms Are (Timing): Still Present Location Of Pain/Discomfort: Suprapubic Quality Of Discomfort: Unable To Describe Associated Symptoms: Other (Hematuria) Exacerbating Factors: None Alleviating Factors: None Recent travel outside of the [place]: No Past Medical History Reviewed: Historical Data, Nursing Documentation, Vital Signs Vital Signs: Last Vital Signs Temp 98.1 F 08/03/18 21:52 Pulse 95 H 08/03/18 21:52 Resp 16 08/03/18 21:52 BP 156/73 H 08/03/18 21:52 Pulse Ox 96 08/03/18 21:52 - Medical History PMH: Malignancy (colon ca) - [facility] Procedures APPLICATION OF SPLINT (05/07/14) Family History: States: Unknown Family Hx - Social History Hx Tobacco Use: Yes (light smoker) Hx Alcohol Use: Yes Hx Substance Use: Yes (marijuana for pain control) - Immunization History Hx Tetanus Toxoid Vaccination: No Hx Influenza Vaccination: No Hx Pneumococcal Vaccination: No Review Of Systems Constitutional: Negative for: Fever, Chills Cardiovascular: Negative for: Chest Pain, Palpitations Respiratory: Negative for: Cough, Shortness of Breath Gastrointestinal: Positive for: Abdominal Pain. Negative for: Nausea, Vomiting Genitourinary: Positive for: Hematuria Neurological: Negative for: Weakness, Numbness Physical Exam - Physical Exam Appears: Non-toxic Skin: Normal Color, Warm, Dry Head: Atraumatic, Normacephalic Eye(s): bilateral: Normal Inspection Oral Mucosa: Moist Neck: Normal, Supple Chest: Symmetrical, No Tenderness Cardiovascular: Rhythm Regular Respiratory: Normal Breath Sounds, No Rales, No Rhonchi, No Wheezing Gastrointestinal/Abdominal: Soft, No Guarding, No Rebound, Other (Suprapubic te nderness, distention, firm) Back: No CVA Tenderness Neurological/Psych: Oriented x3, Normal Speech ED Course And Treatment - Laboratory Results Result Diagrams: 08/03/18 23:04 08/03/18 23:04 O2 Sat by Pulse Oximetry: 96 (room air) Pulse Ox Interpretation: Normal - CT Scan/US CT abd/pel Other Rad Studies (CT/US): Read By Radiologist, Radiology Report Reviewed CT/US Interpretation: CT SCAN OF THE ABDOMEN AND PELVIS WITHOUT ORAL OR IV CONTRAST. CLINICAL INDICATION: Lower abdominal and pelvic pain. TECHNIQUE: Axial and reformatted sagittal and coronal images of the abdomen pelvis obtained without IV contrast administration. COMPARISON: 09/07/2017. FINDINGS: Bilateral basilar atelectatic pulmonary changes. Prior partial colectomy. Unremarkable left lower quadrant colostomy. Unchanged diffuse thickening of the wall of the catheterized bladder. Unchanged soft tissue thickening in the presacral space. Unchanged associated gas densities. Probably secondary to fistulous tract. No evidence of drainable abscess formation. Mild fullness of the renal collecting systems. Unchanged. Normal unenhanced liver. Normal gallbladder and extrahepatic biliary system. Normal unenhanced spleen. Normal pancreas. . Normal bilateral adrenal glands. Normal size of the right kidney. There is no right renal mass. There are no right renal calculi. Normal size of the left kidney. There is no left renal mass. There are no left renal calculi. Normal visualized stomach. Normal small intestine. Normal remaining colon. The appendix contains an appendicolith without associated inflammatory changes. There is no demonstrated peritoneal fluid. Normal abdominal aorta. Normal inferior vena cava. Normal retroperitoneum. . There is no pelvic mass lesion or lymphadenopathy. There is no pelvic fluid. . Normal abdominal wall. Normal osseous structures. IMPRESSION: Bilateral basilar atelectatic pulmonary changes. Prior partial colectomy. Unremarkable left lower quadrant colostomy. Unchanged diffuse thickening of the wall of the catheterized bladder. Unchanged soft tissue thickening in the presacral space. Unchanged associated gas densities. Probably secondary to fistulous tract. No evidence of drainable abscess formation. Mild fullness of the renal collecting systems. Unchanged. Progress Note: Blood work and urinalysis ordered. Leone catheter inserted but only a small amount of blood tinged urine obtained. Catheter flushed with saline without any resistance. Patient continues to have significant pain treated with Morphine. Reevaluation Time: 00:40 Reassessment Condition: Improved (after Morphine IV) - Physician Consult Information Time Consulting Physician Contacted: 00:40 Physician Contacted: Rl Blanco Jr. Outcome Of Conversation: Patient to be admitted for pain control and urologic consultation. Disposition - Disposition Disposition: HOSPITALIZED Disposition Time: 00:40 Condition: IMPROVED - POA Present On Arrival: None - Clinical Impression Clinical Impression: Acute cystitis with hematuria - Scribe Statement The provider has reviewed the documentation as recorded by the Scribjuno Conn All medical record entries made by the Jenniferibjuno were at my direction and personally dictated by me. I have reviewed the chart and agree that the record accurately reflects my personal performance of the history, physical exam, medical decision making, and the department course for this patient. I have also personally directed, reviewed, and agree with the discharge instructions and disposition.
[2018-08-03 23:09] LABS: BASO # 0.2 K/uL (0.0-0.2); BASO % 2.3 % (0.0-2.0); EOS # 0.1 K/uL (0.0-0.7); EOS % 1.6 % (0.0-4.0); HEMOGLOBIN 12.9 g/dL (11.0-16.0); LYMPH % 25.6 % (20.0-40.0); MEAN CELL VOLUME 96.1 fL (81.0-99.0); MEAN CORPUSCULAR HEMOGLOBIN 32.3 pg (27.0-31.0); MEAN CORPUSCULAR HGB CONC 33.6 g/dL (33.0-37.0); MEAN PLATELET VOLUME 7.3 fL (7.2-11.7); MONO # 0.4 K/uL (0.0-0.8); MONO % 5.4 % (0.0-10.0); NEUT # 5.1 K/uL (1.8-7.0); NEUT % 65.1 % (50.0-75.0); NRBC % 0.1 % (0.0-2.0); RBC 3.99 Mil/uL (3.80-5.20); RED CELL DISTRIBUTION WIDTH 13.6 % (11.5-14.5); WHITE BLOOD COUNT 7.8 K/uL (4.8-10.8)
[2018-08-03 23:15] LABS: URINE BACTERIA RARE (<OCC); URINE BILIRUBIN NEGATIVE (NEGATIVE); URINE BLOOD 3+ (NEGATIVE); URINE CLARITY Hazy (Clear); URINE COLOR Red (YELLOW); URINE GLUCOSE (UA) NORMAL (Normal); URINE LEUKOCYTE ESTERASE NEG Leu/uL (Negative); URINE PROTEIN 2+ mg/dL (NEGATIVE); URINE UROBILINOGEN NORMAL mg/dL (0.2-1.0)
[2018-08-03 23:19] LABS: ALB/GLOB RATIO 1.5 (1.0-2.1); ALBUMIN 4.4 g/dL (3.5-5.0); ALT/SGPT 9 U/L (9-52); AST/SGOT 22 U/L (14-36); BLOOD UREA NITROGEN 20 mg/dL (7-17); CALCIUM 8.8 mg/dl (8.6-10.4); GFR NON-AFRICAN AMERICAN > 60
--- NOTE | 2018-08-04 01:02 | CP.PCM.HP ---
History of Present Illness - History of Present Illness History of Present Illness: PGY1 H&P for Dr. Blanco's service CC: lower abdominal pain, hematuria This is a 57 year old female with PMH of Stage 4 colon cancer (s/p colostomy 2008, and radiation and chemotherapy from [id number]), hemorrhagic cystitis, arthritis who presents with lower abdominal pain and hematuria for the past few hours. Pt reports that symptoms started abruptly at 5 pm on 08/03/18. Abdominal pain is described as a fullness/pressure to the suprapubic region, that is constant since onset. Pt describes an inability to urinate, and passing blood c lots in the urine. She came in requesting landrum catheter placement. Pt's last episode of similar symptoms was in August 2017, where she was admitted for 3 days but signed out AMA. She denies fever, chills, chest pain, palpitations, increased urinary frequency, headache, dizziness, lightheadedness, syncope. Pt endorses white, cottage cheese like vaginal discharge for the past week, for which she has been using Monostat OTC. PMD: none OBGYN/Oncology: Seng Prabhakar Urologist: None PMH: Stage 4 colon cancer (s/p colostomy 2008, and radiation and chemotherapy from [id number]), hemorrhagic cystitis, arthritis, anxiety PSH: colostomy in 2008 Meds: Tylenol as needed for pain, Monostat OTC Allx: Hive reaction to Bactrim, Acetominophen, and Propoxyphene FHs: Sister with CABG at age 55, has a pacemaker. Father with cardiac problems, unsure of age of diagnosis or type of problems. No family history of cancer. SHx: smokes approx 5 cigs per day for the past 40 years, social etoh use (last on ), marijuana for pain and anxiety Present on Admission - Present on Admission Any Indicators Present on Admission: No Review of Systems - Review of Systems All systems: reviewed and no additional remarkable complaints except (as per HPI) Past Patient History - Past Medical History & Family History Past Medical History?: Yes - Past Social History Smoking Status: Light Smoker < 10 Cigarettes Daily - CARDIAC Hx Cardiac Disorders: No - PULMONARY Hx Respiratory Disorders: No - NEUROLOGICAL Hx Neurological Disorder: No - HEENT Hx HEENT Problems: No - RENAL Other/Comment: bilateral hydronephrosis - ENDOCRINE/METABOLIC Hx Endocrine Disorders: No - HEMATOLOGICAL/ONCOLOGICAL Hx Blood Disorders: Yes Hx Cancer: Yes (colon surgery) Hx Chemotherapy: Yes - INTEGUMENTARY Hx Dermatological Problems: No - MUSCULOSKELETAL/RHEUMATOLOGICAL Hx Falls: No - GASTROINTESTINAL Hx Gastrointestinal Disorders: Yes Hx Colostomy: Yes Other/Comment: CANCER COLON - GENITOURINARY/GYNECOLOGICAL Hx Genitourinary Disorders: Yes Hx Hematuria: Yes - PSYCHIATRIC Hx Substance Use: Yes (marijuana for pain control) - SURGICAL HISTORY Hx Surgeries: Yes Other/Comment: Left COLOSTOMY - 2009. colon surgery - ANESTHESIA Hx Anesthesia: Yes Hx Anesthesia Reactions: No Hx Malignant Hyperthermia: No Meds Allergies/Adverse Reactions: Allergies Allergy/AdvReac Type Severity Reaction Status Date / Time sulfamethoxazole Allergy Mild RASH Verified 09/07/17 22:13 [From Bactrim] trimethoprim [From Bactrim] Allergy Mild RASH Verified 09/07/17 22:13 acetaminophen Allergy RASH Verified 09/07/17 22:13 [From Darvocet-N] propoxyphene Allergy RASH Verified 09/07/17 22:13 [From Darvocet-N] Physical Exam - Constitutional Appears: Non-toxic, In Acute Distress (uncomfortable due to pain) - Head Exam Head Exam: NORMAL INSPECTION - Eye Exam Eye Exam: EOMI, Normal appearance - ENT Exam ENT Exam: Mucous Membranes Moist - Respiratory Exam Respiratory Exam: Clear to Auscultation Bilateral, NORMAL BREATHING PATTERN. absent: Decreased Breath Sounds, Rales, Rhonchi, Wheezes, Respiratory Distress, Stridor - Cardiovascular Exam Cardiovascular Exam: REGULAR RHYTHM, +S1, +S2. absent: Tachycardia - GI/Abdominal Exam GI & Abdominal Exam: Normal Bowel Sounds, Soft, Tenderness (supra pubic tenderness). absent: Distended, Firm, Guarding, Rebound Additional comments: Landrum in place with yellow urine approx 100 mL (+) pubic mass (chronic as per pt), nontender (+) colostomy bag with brown stool; no signs of leaking or infection - Extremities Exam Extremities exam: Positive for: normal capillary refill, normal inspection, pedal pulses present. Negative for: calf tenderness, pedal edema - Back Exam Back exam: NORMAL INSPECTION. absent: CVA tenderness (L), CVA tenderness (R) - Neurological Exam Neurological exam: Alert, Oriented x3 - Psychiatric Exam Psychiatric exam: Normal Affect, Normal Mood - Skin Skin Exam: Dry, Normal Color, Warm Results - Vital Signs Recent Vital Signs: Last Vital Signs Temp 98.1 F 08/03/18 21:52 Pulse 95 H 08/03/18 21:52 Resp 16 08/03/18 21:52 BP 156/73 H 08/03/18 21:52 Pulse Ox 96 08/04/18 00:41 - Labs Result Diagrams: 08/03/18 23:04 08/03/18 23:04 Labs: Laboratory Results - last 24 hr 08/03/18 08/03/18 08/03/18 23:04 23:04 23:04 WBC 7.8 RBC 3.99 Hgb 12.9 Hct 38.3 MCV 96.1 D MCH 32.3 H MCHC 33.6 RDW 13.6 Plt Count 274 MPV 7.3 Neut % (Auto) 65.1 Lymph % (Auto) 25.6 [place] % (Auto) 5.4 Eos % (Auto) 1.6 Baso % (Auto) 2.3 H Neut # (Auto) 5.1 Lymph # (Auto) 2.0 [place] # (Auto) 0.4 Eos # (Auto) 0.1 Baso # (Auto) 0.2 Sodium 139 Potassium 3.9 Chloride 107 Carbon Dioxide 20 L Anion Gap 16 BUN 20 H Creatinine 0.6 L Est GFR ( Amer) > 60 Est GFR (Non-Af Amer) > 60 Random Glucose 132 H D Calcium 8.8 Total Bilirubin 0.3 AST 22 ALT 9 D Alkaline Phosphatase 94 Total Protein 7.5 Albumin 4.4 Globulin 3.0 Albumin/Globulin Ratio 1.5 Urine Color Red Urine Clarity [place] Urine pH 6.0 Ur Specific [place] 1.027 Urine Protein 2+ H Urine Glucose (UA) Normal Urine Ketones Negative Urine Blood 3+ H Urine Nitrate Negative Urine Bilirubin Negative Urine Urobilinogen Normal Ur Leukocyte Esterase Neg Urine RBC (Auto) 6013 H Urine Bacteria Rare Assessment & Plan - Assessment and Plan (Free Text) Assessment: This is a 57 year old female with PMH of Stage 4 colon cancer (s/p colostomy 2008, and radiation and chemotherapy from [id number]), hemorrhagic cystitis, arthritis who presents with lower abdominal pain and hematuria for the past few hours. Plan: Hemorrhagic cytitis Abd/pelv ct without contrast preliminary report shows Bilateral basilar atelectatic pulmonary changes. Prior partial colectomy. Unremarkable left lower quadrant colostomy. Unchanged diffuse thickening of the wall of the catheterized bladder. Unchanged soft tissue thickening in the presacral space. Unchanged associated gas densities. Probably secondary to fistulous tract. No evidence of drainable abscess formation. Mild fullness of the renal collecting systems. Unchanged. UA shows 3+ blood, 6013 RBCs, no WBC/nitrates/leukocyte esterase/bacteria Solumedrol 125 mg IVP x1, continue Solumedrol 40 mg IVP q12h NS IVF at 100 mL/hr Dilaudid 0.5 mg IV q6 PRN for pain Bladder scan prn and flush the landrum PT/INR/PTT is 11.2/1.0/27 on admission Urology, Dr. Wei Zarate, consulted. Recommendations appreciated F/u urine culture Hx of vaginal candidiasis Continue to monitor at this time Will reconsider treatment in am No indication for GI ppx at this time VTE ppx contraindicated due to hemorrhagic cystitis Regular diet Case was reviewed and discussed with attending physician, Dr. Blanco
[2018-08-04] MEDS ORDERED: HYDROmorphone 0.5 mg/0.5 ml ISec IVP PRN (02:34)
[2018-08-04] MEDS ORDERED: Sodium Chloride 0.9% 1,000 ML ONE (02:48)
[2018-08-04] MEDS: Sodium Chloride 0.9% 1,000 ML IV SCH ×2 (02:50→12:27)
[2018-08-04 03:24] LABS: PROTHROMBIN TIME 11.2 SECONDS (9.7-12.2)
[2018-08-04 04:40] LABS: BASO # 0.1 K/uL (0.0-0.2); BASO % 1.1 % (0.0-2.0); EOS # 0.1 K/uL (0.0-0.7); EOS % 1.4 % (0.0-4.0); HEMOGLOBIN 12.8 g/dL (11.0-16.0); LYMPH # 1.5 K/uL (1.0-4.3); LYMPH % 23.2 % (20.0-40.0); MEAN CELL VOLUME 95.7 fL (81.0-99.0); MEAN CORPUSCULAR HEMOGLOBIN 32.6 pg (27.0-31.0); MEAN PLATELET VOLUME 7.3 fL (7.2-11.7); MONO # 0.2 K/uL (0.0-0.8); MONO % 3.6 % (0.0-10.0); NEUT # 4.6 K/uL (1.8-7.0); NEUT % 70.7 % (50.0-75.0); RBC 3.92 Mil/uL (3.80-5.20); RED CELL DISTRIBUTION WIDTH 13.5 % (11.5-14.5); WHITE BLOOD COUNT 6.5 K/uL (4.8-10.8)
[2018-08-04 05:00] LABS: ALB/GLOB RATIO 1.3 (1.0-2.1); ALBUMIN 4.2 g/dL (3.5-5.0); ALT/SGPT 20 U/L (9-52); AST/SGOT 22 U/L (14-36); BLOOD UREA NITROGEN 17 mg/dL (7-17); CALCIUM 8.6 mg/dl (8.6-10.4); GFR NON-AFRICAN AMERICAN > 60
[2018-08-04 06:58] LABS: BARBITURATES, UR NEGATIVE (NEGATIVE); BENZODIAZEPINES, UR NEGATIVE (NEGATIVE); PHENCYCLIDINE, UR NEGATIVE (NEGATIVE)
--- NOTE | 2018-08-04 07:42 | CP.PCM.PN ---
Subjective - Date & Time of Evaluation Date of Evaluation: 08/04/18 Time of Evaluation: 09:00 - Subjective Subjective: Patient examined at bedside, daughter in room. No acute overnight events. Patient reports symptoms much improved since admission. Denies abdominal pain, body aches, fever like symptoms. Pt reports she is eager to return home. Patient signed out AMA after being explained risks of leaving against medical advice. She did not want to wait for Dr. Zarate to evaluate. Patient understood and assumes risk; confirms she will f/u with Dr. Blanco and Dr. Zarate outpatient. Objective - Vital Signs/Intake and Output Vital Signs (last 24 hours): Temp Pulse Resp BP Pulse Ox 97.8 F 81 18 139/60 96 08/04/18 07:15 08/04/18 07:15 08/04/18 07:15 08/04/18 07:15 08/04/18 07:15 - Medications Medications: Current Medications Hydromorphone HCl (Dilaudid) 0.5 mg IVP Q6H PRN PRN Reason: Pain, severe (8-10) Sodium Chloride (Sodium Chloride 0.9%) 1,000 mls @ 100 mls/hr IV .Q10H DONALDO Last Admin: 08/04/18 02:50 Dose: 100 mls/hr Methylprednisolone (Solu-Medrol) 40 mg IVP BID DONALDO - Labs Labs: 08/04/18 04:35 08/04/18 04:35 PT 11.2 SECONDS (9.7-12.2) 08/04/18 03:15 INR 1.0 08/04/18 03:15 APTT 27 SECONDS (21-34) 08/04/18 03:15 - Constitutional Appears: Non-toxic, No Acute Distress - Head Exam Head Exam: ATRAUMATIC, NORMAL INSPECTION, NORMOCEPHALIC - Eye Exam Eye Exam: EOMI, Normal appearance - ENT Exam ENT Exam: Mucous Membranes Moist, Normal Exam - Neck Exam Neck Exam: Normal Inspection - Respiratory Exam Respiratory Exam: Clear to Ausculation Bilateral, NORMAL BREATHING PATTERN - Cardiovascular Exam Cardiovascular Exam: REGULAR RHYTHM, +S1, +S2 - GI/Abdominal Exam GI & Abdominal Exam: Soft, Tenderness (suprapubic), Normal Bowel Sounds. ab sent: Distended Additional comments: colostomy functioning, stool and gas in bag - Exam Additional comments: landrum draining clear yellow urine - Extremities Exam Extremities Exam: Normal Inspection. absent: Calf Tenderness, Pedal Edema - Back Exam Back Exam: NORMAL INSPECTION - Neurological Exam Neurological Exam: Alert, Awake, Oriented x3 - Psychiatric Exam Psychiatric exam: Normal Affect, Normal Mood - Skin Skin Exam: Dry, Intact, Normal Color, Warm Assessment and Plan - Assessment and Plan (Free Text) Assessment: 57 year old female admitted for evaluation and treatment of hematuria Plan: Hematuria likely 2/2 to radiation for colon cancer Abd/pelv ct without contrast preliminary report shows Bilateral basilar atelectatic pulmonary changes. Prior partial colectomy. Unremarkable left lower quadrant colostomy. Unchanged diffuse thickening of the wall of the catheterized bladder. Unchanged soft tissue thickening in the presacral space. Unchanged associated gas densities. Probably secondary to fistulous tract. No evidence of drainable abscess formation. Mild fullness of the renal collecting systems. Unchanged. UA shows 3+ blood, 6013 RBCs, no WBC/nitrates/leukocyte esterase/bacteria Solumedrol 125 mg IVP x1, continue Solumedrol 40 mg IVP q12h NS IVF at 100 mL/hr Dilaudid 0.5 mg IV q6 PRN for pain Landrum in place Bladder scan prn and flush the landrum Urology consult, Dr. Tessa Wu discussed with Dr. Blanco, -Shania Gomez, PGY-1 Patient signed out AMA after being explained risks of leaving against medical advice. Patient understood and assumes risk
[2018-08-04 08:16] LABS: OPIATES, UR POSITIVE (NEGATIVE)
[2018-08-04 08:41] VITALS: BP 131/58; PULSE 77; RESP 20; TEMP 97.9; O2SAT 95
[2018-08-04] MEDS ORDERED: MethylPREDNISolone 40 mg Vial IVP SCH (10:00)
--- NOTE | 2018-08-04 10:57 | CT ---
Date of service: 08/03/2018 PROCEDURE: CT Abdomen and Pelvis without intravenous contrast HISTORY: lower abdominal pain, ? urinary retention COMPARISON: Abdomen pelvis CT with contrast 09/07/2017. TECHNIQUE: Helical CT of the abdomen and pelvis was performed without oral or intravenous contrast as per referring physician request. Coronal and sagittal reformats were generated.. Contrast dose: None Radiation dose: Total exam DLP = 217.52 mGy-cm. This CT exam was performed using one or more of the following dose reduction techniques: Automated exposure control, adjustment of the mA and/or kV according to patient size, and/or use of iterative reconstruction technique. FINDINGS: LOWER THORAX: Limited linear atelectasis or fibrosis in the bilateral lung bases, stable in appearance. No acute basilar findings appreciable grossly. LIVER: Unremarkable. No gross lesion or ductal dilatation. GALLBLADDER AND BILE DUCTS: Unremarkable. PANCREAS: Unremarkable. No gross lesion or ductal dilatation. SPLEEN: Unremarkable. ADRENALS: Unremarkable. No mass. KIDNEYS AND URETERS: Unremarkable. No hydronephrosis. No solid mass. VASCULATURE: Nonaneurysmal abdominal aortic calcific atherosclerotic changes are identified. BOWEL: Patient status post distal left colectomy including rectum. No bowel obstruction. No gross mural thickening. Evaluation of the gastrointestinal tract is limited due to the lack of oral contrast administration. Left-sided colostomy identified with no suspicious findings related. APPENDIX: Unremarkable. Normal appendix. PERITONEUM: Unremarkable. No free fluid. No free air. LYMPH NODES: Unremarkable. No enlarged lymph nodes. BLADDER: The bladder is decompressed by Leone catheter. REPRODUCTIVE: Unremarkable. BONES: No acute fracture. OTHER FINDINGS: None. IMPRESSION: Prior distal colectomy reiterated with left sided colostomy stable in appearance. No bowel obstruction, measure edema, ascites or free intra peritoneal gas collection identified. Lack of contrast agents limits interpretation. Further characterization of the abdomen pelvis can provided by contrast CT if clinically warranted. Preliminary report provided by Susan, 08/04/2018, 12:31 a.m..
[2018-08-04] MEDS ORDERED: Influenza Vaccine 60 mcg/0.5 mL SYR (4YR UP) IM ONE (14:00)
== END 2018-08-04 15:14 | disposition left against medical advice (07) ==
LOC: C.ER 21:43 → C.9E 08-04 00:37 → C.5S 08-04 07:06
PROVIDERS: ADMIT Internal Medicine; ATTEND Internal Medicine
DX: N30.41 Irradiation cystitis with hematuria (principal); N89.8 Other specified noninflammatory disorders of vagina; F17.210 Nicotine dependence, cigarettes, uncomplicated; M19.90 Unspecified osteoarthritis, unspecified site; Y84.2 Radiological procedure and radiotherapy as the cause of abnormal reaction of the patient, or of later complication, without mention of misadventure at the time of the procedure; Z85.038 Personal history of other malignant neoplasm of large intestine; Z92.21 Personal history of antineoplastic chemotherapy; Z92.3 Personal history of irradiation; Z93.3 Colostomy status
CPT/HCPCS: 74176; 80053; 81001; 83735; 84100; 85025; 85610; 85730; 87086; 96374; G0378; G0480; J2270; J2920; J2930; J7030